=== PATIENT | male | born 1945 | race Caucasian/White ===

== ENCOUNTER 2021-03-13 12:36 | Emergency (ER) | payer MEDICARE ==
[2021-03-13 13:52] LABS: HEMOGLOBIN 9.3 gm/dl (14.0-17.5); RED BLOOD COUNT 3.14 M/UL (4.20-5.50); WHITE BLOOD COUNT 6.3 K/UL (4.5-11.0)
[2021-03-13 14:35] LABS: BUN/CREATININE RATIO 21 (0-10)
== END 2021-03-13 19:08 | disposition home or self-care (01) ==
LOC: ER1 12:36
PROVIDERS: Emergency Medicine
DX: E87.5 Hyperkalemia (principal); I12.9 Hypertensive chronic kidney disease with stage 1 through stage 4 chronic kidney disease, or unspecified chronic kidney disease; E11.22 Type 2 diabetes mellitus with diabetic chronic kidney disease; N18.9 Chronic kidney disease, unspecified; D63.1 Anemia in chronic kidney disease
CPT/HCPCS: 80053; 82550; 82553; 83874; 84484; 85025; 99283

== ENCOUNTER 2021-03-21 16:39 | Emergency (ER) | payer MEDICARE ==
[2021-03-21 17:17] LABS: HEMOGLOBIN 10.9 gm/dl (14.0-17.5); RED BLOOD COUNT 3.63 M/UL (4.20-5.50)
[2021-03-21] MEDS ORDERED: CEFUROXIME500 MG PO (19:17)
== END 2021-03-21 19:25 ==
LOC: ER1 16:39
PROVIDERS: Preventive Medicine Occupational Medicine
DX: N39.0 Urinary tract infection, site not specified (principal); E86.0 Dehydration; Z20.822 Contact with and (suspected) exposure to COVID-19
CPT/HCPCS: 36600; 70450; 71045; 80053; 81001; 82140; 82550; 82553; 82803; 83690; 83874; 84484; 85025; 85652; 86140; 87077; 87086; 87186; 93005; 96374; 99285; J0696; U0002

== ENCOUNTER → 2021-04-26 | Outpatient (CLI) | payer MEDICARE ==
[~2021-04-26] MED LIST: CEFUROXIME500 MG PO
== END ==
LOC: EXRD 10:24
DX: N17.9 Acute kidney failure, unspecified (principal)
CPT/HCPCS: 76775

== ENCOUNTER 2021-11-27 16:06 | Emergency (ER) | payer MEDICARE, OTHER ==
[2021-11-27 16:41] LABS: HEMOGLOBIN 11.4 gm/dl (14.0-17.5); RED BLOOD COUNT 3.84 M/UL (4.20-5.50)
== END 2021-11-27 17:41 | disposition home or self-care (01) ==
LOC: ER1 16:06
PROVIDERS: Emergency Medicine
DX: I63.9 Cerebral infarction, unspecified (principal); I11.0 Hypertensive heart disease with heart failure; I50.9 Heart failure, unspecified; Z20.822 Contact with and (suspected) exposure to COVID-19; E78.5 Hyperlipidemia, unspecified; K21.9 Gastro-esophageal reflux disease without esophagitis; E11.9 Type 2 diabetes mellitus without complications; Z86.73 Personal history of transient ischemic attack (TIA), and cerebral infarction without residual deficits
CPT/HCPCS: 70450; 71045; 80053; 82272; 82550; 82553; 84484; 85025; 85610; 85730; 93005; 99285; U0002

== ENCOUNTER → 2022-01-17 | Outpatient (CLI) | payer MEDICARE, OTHER ==
[2022-01-18 10:15] LABS: CREATININE, URINE 54.1 mg/dL (Not Estab.)
== END ==
LOC: LBRF 14:04
PROVIDERS: Emergency Medicine
DX: N18.4 Chronic kidney disease, stage 4 (severe) (principal)
CPT/HCPCS: 80053; 82043; 82570; 84156